=== PATIENT | female | born 1980 | race Caucasian/White ===

== ENCOUNTER 2018-01-18 01:46 | Emergency (ER) | END 2018-01-18 04:41 | disposition home or self-care (01) ==

== ENCOUNTER 2018-07-17 09:34 | Emergency (ER) | END 2018-07-17 11:47 | disposition home or self-care (01) ==

== ENCOUNTER 2018-07-24 09:55 | Emergency (ER) | END 2018-07-24 12:05 | disposition home or self-care (01) ==